=== PATIENT | male | born 1965 | race Caucasian/White ===

== ENCOUNTER 2023-04-11 01:17 | Observation (INO) | payer OTHER ==
[2023-04-11] MEDS: BUMETANIDE 1 MG/4 ML VIAL ONE (02:02)
[2023-04-11 02:16] LABS: Protime INR 2.24
[2023-04-11 02:18] LABS: Absolute Lymphocytes (CBC) 2.5 K/uL (0.7-4.9); Hematocrit 37.9 % (39.6-49.0); Lymphocytes % 28.9 % (15.3-44.8); MCV 93.4 fL (80-100); MPV 9.4 fL (7.6-11.3); Platelets 187 thou/uL (152-406); RBC Red Blood Cell Count 4.05 M/uL (4.33-5.43)
[2023-04-11 02:33] LABS: SARS-CoV-2 Antigen Rapid Res Negative (Negative)
[2023-04-11 02:38] LABS: Albumin 3.1 g/dL (3.4-5.0); Bilirubin Direct 0.2 mg/dL (0-0.2); Bilirubin Indirect, Calculated 0.4 mg/dL (0.2-0.8); Bilirubin Total 0.6 mg/dL (0.2-1.0); Magnesium 1.7 mg/dL (1.6-2.4); Potassium 3.8 mEq/L (3.5-5.1); Protein, Total 6.8 g/dL (6.4-8.2); Thyroid Stimulating Hormone 1.87 uIU/mL (0.358-3.740); Troponin High Sensitivity 43.8 pg/mL (<58.9)
[2023-04-11 03:28] LABS: Barbiturates NEGATIVE (NEGATIVE); Benzodiazepines NEGATIVE (NEGATIVE); Cocaine POSITIVE (NEGATIVE); METHAMPHETAM NEGATIVE (NEGATIVE); Methadone NEGATIVE (NEGATIVE); Opiates NEGATIVE (NEGATIVE); Phencyclidine NEGATIVE (NEGATIVE); THC Cannibis NEGATIVE (NEGATIVE)
[2023-04-11] MEDS ORDERED: ONDANSETRON 4 MG/2 ML VIAL IV PRN (04:33)
[2023-04-11] MEDS ORDERED: ACETAMINOPHEN 325 MG TABLET PO PRN (04:33)
--- NOTE | 2023-04-11 04:41 | ER ---
Nurse's Notes [facility] Name: Chun Cheema Age: 57 yrs Sex: Male : 1965 Arrival Date: 04/11/2023 Time: 01:17 Bed 16 Private MD: Diagnosis: Acute diastolic (congestive) heart failure;Cocaine abuse, history of COPD, diabetes mellitus type 2, history of right foot osteomyelitis, exertional dyspnea Presentation: 04/11 01:27 Chief complaint: Patient states: "I've been having SOB for the last 5 days and it got jw7 worse this morning. I've also been having some abdominal pain, especially when I'm talking or active". Coronavirus screen: At this time, the client does not indicate any symptoms associated with coronavirus-19. Ebola Screen: No symptoms or risks identified at this time. Initial Sepsis Screen: Does the patient meet any 2 criteria? No. Patient's initial sepsis screen is negative. Does the patient have a suspected source of infection? No. Patient's initial sepsis screen is negative. Risk Assessment: Do you want to hurt yourself or someone else? Patient reports no desire to harm self or others. Onset of symptoms was April 06, 2023. 01:27 Method Of Arrival: EMS: [facility] 7 01:27 Acuity: KEYON 3 jw7 Triage Assessment: 01:30 General: Appears distressed, uncomfortable, Behavior is calm, cooperative. Pain: jw7 Complains of pain in abdomen Pain does not radiate. Pain currently is 3 out of 10 on a pain scale. Quality of pain is described as throbbing, Pain began gradually, Is intermittent. EENT: No deficits noted. No signs and/or symptoms were reported regarding the EENT system. Neuro: Level of Consciousness is awake, alert, obeys commands, Oriented to person, place, time, situation. Cardiovascular: Heart tones S1 S2 present Capillary refill < 3 seconds Clubbing of nail beds is absent JVD is absent Patient's skin is warm and dry. Respiratory: Reports shortness of breath at rest on exertion Airway is patent Trachea midline Respiratory effort is even, unlabored, Respiratory pattern is regular, symmetrical, Onset: The symptoms/episode began/occurred today, the patient has severe shortness of breath. GI: Abdomen is round distended, Bowel sounds present X 4 quads. Abd is soft and non tender X 4 quads. : No deficits noted. No signs and/or symptoms were reported regarding the genitourinary system. Derm: Skin is intact, is healthy with good turgor, Skin is dry, Skin is normal, Skin temperature is warm. Musculoskeletal: Circulation, motion, and sensation intact. Range of motion: intact in all extremities. Historical: - Allergies: 01:30 No Known Allergies; jw7 - Home Meds: 01:30 Warfarin Oral [Active]; Lovenox Sub-Q [Active]; Famotidine Oral [Active]; Metformin jw7 Oral [Active]; Methocarbamol Oral [Active]; Metoprolol Tartrate Oral [Active]; gabapentin oral [Active]; Iron CR Oral [Active]; Super Calcium oral [Active]; vancomycin intravenous [Active]; - PMHx: 01:30 Congestive heart failure; COPD; Diabetes mellitus; GERD; Neuropathy; Irregular HR (Low jw7 Injection Fraction); - PSHx: :30 Aortic Valve Replacement; Toe Amputation (Right Foot); Foot (Bilateral); Thoracic jw7 Aneurysm Repair; - Immunization history:: Adult Immunizations up to date, Client reports receiving the 2nd dose of the Covid vaccine, Last tetanus immunization: < 10 years ago Pneumococcal vaccine is up to date, Flu vaccine is up to date. - Social history:: Smoking status: Patient reports the use of cigarette tobacco products, 1-2 cigarettes/day, Patient uses alcohol, but reports only rare drinking. Patient/guardian denies using street drugs, IV drugs. - Family history:: not pertinent. Screenin:[facility] ED Fall Risk Assessment (Adult) History of falling in the last 3 months, jw7 including since admission No falls in past 3 months (0 pts) Confusion or Disorientation No (0 pts) Intoxicated or Sedated No (0 pts) Impaired Gait Yes (1 pt) Mobility Assist Device Used No (0 pt) Altered Elimination No (0 pt) Score/Fall Risk Level 0 - 2 = Low Risk Oriented to surroundings, Maintained a safe environment, Educated pt \\T\\ family on fall prevention, incl call for assistance when getting out of bed. Abuse screen: Denies threats or abuse. Denies injuries from another. Nutritional screening: No deficits noted. Tuberculosis screening: No symptoms or risk factors identified. Assessment: 01:30 General: See Triage Assessment. jw7 02:00 Cardiovascular: Rhythm is sinus rhythm with 1st degree heart block. Respiratory: Airway jw7 is patent Trachea midline Respiratory effort is even, unlabored, Respiratory pattern is regular, symmetrical, Breath sounds with crackles bilaterally. 02:29 Reassessment: Patient appears in no apparent distress at this time. No changes from 7 previously documented assessment. Patient and/or family updated on plan of care and expected duration. Pain level reassessed. Patient is alert, oriented x 3, equal unlabored respirations, skin warm/dry/pink. 03:46 Reassessment: Patient appears in no apparent distress at this time. No changes from jw7 previously documented assessment. Patient and/or family updated on plan of care and expected duration. Pain level reassessed. Patient is alert, oriented x 3, equal unlabored respirations, skin warm/dry/pink. 04:50 Reassessment: Patient appears in no apparent distress at this time. No changes from [facility] previously documented assessment. Patient and/or family updated on plan of care and expected duration. Pain level reassessed. Patient is alert, oriented x 3, equal unlabored respirations, skin warm/dry/pink. 06:00 Reassessment: Patient appears in no apparent distress at this time. Patient and/or jw7 family updated on plan of care and expected duration. Pain level reassessed. Patient is alert, oriented x 3, equal unlabored respirations, skin warm/dry/pink. Patient states symptoms have improved. 06:22 General: Attempted to call report to main floor line and charge nurse phone, no answer. jw7 Vital Signs: 01:27 BP 135 / 103; Pulse 70; Resp 22 S; Temp 98(O); Pulse Ox 98% on 4 lpm NC; Weight 115.67 jw7 kg; Height 6 ft. 5 in. ; Pain 3/10; 01:30 BP 122 / 84; Pulse 65; Resp 23 S; Pulse Ox 99% on 4 lpm NC; jw7 02:30 BP 123 / 96; Pulse 65; Resp 26 S; Pulse Ox 98% on 4 lpm NC; jw7 03:30 BP 121 / 87; Pulse 61; Resp 24 S; Pulse Ox 97% on 2 lpm NC; jw7 04:30 BP 110 / 79; Pulse 65; Resp 20; Pulse Ox 99% on 4 lpm NC; jw7 05:30 BP 123 / 87; Pulse 58; Resp 20; Pulse Ox 99% on 4 lpm NC; jw7 06:00 BP 102 / 86; Pulse 63; Resp 21 S; Pulse Ox 99% on 4 lpm NC; jw7 01:27 Body Mass Index 30.24 (115.67 kg, 195.58 cm) jw7 01:27 Pain Scale: Adult [facility] ED Course: 01:26 Patient arrived in ED. 01:26 Ron Isbell MD is Attending Physician. sp4 01:26 Deneen Hernandez RN is Primary Nurse. jw7 01:30 Triage completed. jw7 01:30 Arm band placed on. jw7 01:40 Patient has correct armband on for positive identification. Bed in low position. Call [facility] light in reach. Side rails up X2. 02:02 Initial lab(s) drawn, by ED staff, sent to lab. Inserted saline lock: 20 gauge in right [facility] forearm, using aseptic technique. Blood collected. 02:06 XRAY Chest (1 view) In Process Unspecified. EDMS 02:06 Foot Right 3 View XRAY In Process Unspecified. EDMS 03:03 CT Chest, Abdomen, Pelvis - W/Contrast In Process Unspecified. EDMS 04:38 Trung Solis MD is Hospitalizing Provider. sp4 06:13 No provider procedures requiring assistance completed. Patient admitted, IV remains in [facility] place. 06:14 Provided Education on: need for admit. [facility] Administered Medications: 02:30 Drug: Bumetanide IVP 1 mg IVP once Route: IVP; Site: right forearm; [facility] 06:26 Follow up: Response: No adverse reaction [facility] Medication: 06:14 VIS not applicable for this client. [facility] Outcome: 04:40 Decision to Hospitalize by Provider. sp4 06:13 Admitted to Tele accompanied by tech, via wheelchair, room 410, [facility] 06:13 Condition: stable 06:13 Instructed on the need for admit, Demonstrated understanding of instructions, 06:26 Patient left the ED. [facility] Signatures: Dispatcher [employer] EDMS Jeremy Abebe Wendy Deneen Hernandez, [place] RN [facility] Ron Isbell MD MD sp4 Corrections: (The following items were deleted from the chart) 06:15 04:30 BP 110 / 79; Pulse 65bpm; Resp 20bpm; Pulse Ox 99% Nasal Cannula FiO2 4%; oe jw7 06:15 05:30 BP 123 / 87; Pulse 58bpm; Resp 20bpm; Pulse Ox 99% Nasal Cannula FiO2 4%; oe jw7
--- NOTE | 2023-04-11 04:41 | EDPHYS ---
Physician Documentation [facility] Name: Chun Cheema Age: 57 yrs Sex: Male : 1965 Arrival Date: 04/11/2023 Time: 01:17 Bed 16 Private MD: ED Physician Ron Isbell HPI: 04/11 01:26 This 57 yrs old Male presents to ER via Unassigned with complaints of sp4 Breathing Difficulty. 01:49 57-year-old male past medical history of CHF, COPD, diabetes mellitus type 2, GERD, sp4 neuropathy, irregular heart rate, presents with acute onset of dyspnea and abdominal distention starting 4 days ago.. Patient reports worsening orthopnea and dyspnea on exertion without any chest pain. Patient primarily goes to [facility] and went there for his medical care while he lived in [place].. Patient has history of aortic valve replacement and thoracic abdominal aortic aneurysm repair. Patient also has history of bilateral fourth toe amputation. Patient has left foot transmetatarsal amputation also right foot transmetatarsal amputation. Patient states he was taking vancomycin and cefazolin via PICC line until 4 days ago his PICC line came out of the left arm. Patient reports he was on antibiotics secondary to osteomyelitis of the right foot.. Historical: - Allergies: 01:30 No Known Allergies; jw7 - Home Meds: 01:30 Warfarin Oral [Active]; Lovenox Sub-Q [Active]; Famotidine Oral [Active]; Metformin jw7 Oral [Active]; Methocarbamol Oral [Active]; Metoprolol Tartrate Oral [Active]; gabapentin oral [Active]; Iron CR Oral [Active]; Super Calcium oral [Active]; vancomycin intravenous [Active]; - PMHx: 01:30 Congestive heart failure; COPD; Diabetes mellitus; GERD; Neuropathy; Irregular HR (Low jw7 Injection Fraction); - PSHx: 01:30 Aortic Valve Replacement; Toe Amputation (Right Foot); Foot (Bilateral); Thoracic jw7 Aneurysm Repair; - Immunization history:: Adult Immunizations up to date, Client reports receiving the 2nd dose of the Covid vaccine, Last tetanus immunization: < 10 years ago Pneumococcal vaccine is up to date, Flu vaccine is up to date. - Social history:: Smoking status: Patient reports the use of cigarette tobacco products, 1-2 cigarettes/day, Patient uses alcohol, but reports only rare drinking. Patient/guardian denies using street drugs, IV drugs. - Family history:: not pertinent. ROS: 04:40 Constitutional: Negative for fever, chills, and weight loss, Cardiovascular: Positive sp4 Dyspnea on exertion, orthopnea 04:40 All other systems are negative, Exam: 04:40 Constitutional: This is a well developed, well nourished patient who is awake, alert, sp4 and in no acute distress. Head/Face: Normocephalic, atraumatic. Eyes: Pupils equal round and reactive to light, extra-ocular motions intact. Lids and lashes normal. Conjunctiva and sclera are not injected. Cornea within normal limits. Periorbital areas with no swelling, redness, or edema. ENT: Nares patent. No nasal discharge, no septal abnormalities noted. Tympanic membranes are normal and external auditory canals are clear. Oropharynx with no redness, swelling, or masses, exudates, or evidence of obstruction, uvula midline. Mucous membranes moist. Neck: Trachea midline, no thyromegaly or masses palpated, and no cervical lymphadenopathy. Supple, full range of motion without nuchal rigidity, or vertebral point tenderness. Chest/axilla: Normal chest wall appearance and motion. Nontender with no deformity. No lesions are appreciated. Cardiovascular: Regular rate and rhythm with a normal S1 and S2. No gallops, murmurs, or rubs. Normal PMI, no JVD. No pulse deficits. Respiratory: Lungs have equal breath sounds bilaterally, clear to auscultation and percussion. No rales, rhonchi or wheezes noted. No increased work of breathing, no retractions or nasal flaring. Abdomen/GI: Soft, with normal bowel sounds. No distension or tympany. No guarding or rebound. No evidence of tenderness throughout. Back: No spinal tenderness. No costovertebral tenderness. Skin: Warm, dry with normal turgor. Normal color with no rashes, no lesions, and no evidence of cellulitis. MS/ Extremity: Pulses equal, no cyanosis. Neurovascular intact. Full, normal range of motion. Positive bilateral transmetatarsal toe amputations Neuro: Awake and alert, GCS 15, oriented to person, place, time, and situation. Cranial nerves II-XII grossly intact. Motor strength 5/5 in all extremities. Sensory grossly intact. Psych: Awake, alert, with orientation to person, place and time. Behavior, mood, and affect are within normal limits Vital Signs: 01:27 BP 135 / 103; Pulse 70; Resp 22 S; Temp 98(O); Pulse Ox 98% on 4 lpm NC; Weight 115.67 jw7 kg; Height 6 ft. 5 in. ; Pain 3/10; 01:30 BP 122 / 84; Pulse 65; Resp 23 S; Pulse Ox 99% on 4 lpm NC; jw7 02:30 BP 123 / 96; Pulse 65; Resp 26 S; Pulse Ox 98% on 4 lpm NC; jw7 03:30 BP 121 / 87; Pulse 61; Resp 24 S; Pulse Ox 97% on 2 lpm NC; jw7 04:30 BP 110 / 79; Pulse 65; Resp 20; Pulse Ox 99% on 4 lpm NC; jw7 05:30 BP 123 / 87; Pulse 58; Resp 20; Pulse Ox 99% on 4 lpm NC; jw7 06:00 BP 102 / 86; Pulse 63; Resp 21 S; Pulse Ox 99% on 4 lpm NC; jw7 01:27 Body Mass Index 30.24 (115.67 kg, 195.58 cm) [facility] 01:27 Pain Scale: Adult [facility] MDM: 01:52 Patient medically screened. sp4 04:26 ED course: EXAM DESCRIPTION: Chest Single View CLINICAL HISTORY:57 years Male, sp4 CONGESTION Comparison: Chest radiograph dated 01/18/2017 IMPRESSION: No focal consolidation. No pleural effusion. No pneumothorax. Prior median sternotomy with advanced cardiomegaly. Mild interstitial edema and vascular congestion. No acute osseous abnormality. . 04:28 Data reviewed: vital signs, nurses notes, EMS record, lab test result(s), cardiac sp4 enzymes, CBC, electrolytes, hepatic panel. 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 Bones: There is a status post amputation of the toes with second through fourth resection of the distal metatarsals. There is increase soft tissue thickening within the area of resection. There is increased sclerosis within the distal metatarsals second third perhaps corresponding to prior healing fracture and/or osteomyelitis are of consideration. No evidence for acute bony injuries. Soft tissues: No significant procedure swelling. Joints: No gross articular abnormality is identified. Others: There are no gross intraosseous lesions. No periosteal reaction were seen. IMPRESSION: Status post amputation of the toes with second through fourth resection of the distal metatarsals. Increased soft tissue thickening within the area of resection. . 04:28 ED course: IMPRESSION: CT CHEST: 1. Mild patchy hazy groundglass opacification sp4 throughout much of the right upper lobe and right lower lobe and to a lesser degree the right middle lobe. There are also a couple of very small patchy areas of groundglass opacification in the posterior lingula. Findings are nonspecific and may be due to an infectious or inflammatory process. A neoplastic process is considered less likely. 2. Small right pleural effusion. 3. Mild cardiomegaly with a prosthetic aortic valve. There is dilatation of the proximal aorta just beyond the prosthetic valve measuring approximately 4.6 cm in cross-sectional diameter. There is tapering of the ascending thoracic aorta. 4. Mildly prominent mediastinal and hilar lymph nodes which are likely reactive inflammatory in nature. CTABDOMEN AND PELVIS: 1. No evidence of acute intra-abdominal or intrapelvic pathology. There is no finding on this examination to explain the patient's reported complaint of abdominal distention. 2. Cholelithiasis. 3. Hepatosplenomegaly. 4. Occasional colonic diverticulosis. 5. Small fat-containing ventral umbilical hernia and small bilateral fat-containing inguinal hernias. Electronically signed by: Patty Stovall DO 04/11/2023 03:49 AM. 04:30 ED course: IMPRESSION: CT CHEST: 1. Mild patchy hazy groundglass opacification sp4 throughout much of the right upper lobe and right lower lobe and to a lesser degree the right middle lobe. There are also a couple of very small patchy areas of groundglass opacification in the posterior lingula. Findings are nonspecific and may be due to an infectious or inflammatory process. A neoplastic process is considered less likely. 2. Small right pleural effusion. 3. Mild cardiomegaly with a prosthetic aortic valve. There is dilatation of the proximal aorta just beyond the prosthetic valve measuring approximately 4.6 cm in cross-sectional diameter. There is tapering of the ascending thoracic aorta. 4. Mildly prominent mediastinal and hilar lymph nodes which are likely reactive inflammatory in nature. CTABDOMEN AND PELVIS: 1. No evidence of acute intra-abdominal or intrapelvic pathology. There is no finding on this examination to explain the patient's reported complaint of abdominal distention. 2. Cholelithiasis. 3. Hepatosplenomegaly. 4. Occasional colonic diverticulosis. 5. Small fat-containing ventral umbilical hernia and small bilateral fat-containing inguinal hernias. Electronically signed by: Patty Stovall DO 04/11/2023 03:49 AM. 04:40 Differential diagnosis: Anxiety Reaction asthma, Bronchitis CHF exacerbation, Chronic sp4 Obstructive Pulmonary Disease Myocardial Infarction pneumonia. 04/11 01:27 Order name: Basic Metabolic Panel; Complete Time: 04:04/11 01:27 Order name: CBC with Diff; Complete Time: 04:04/11 01:27 Order name: LFT's; Complete Time: 04:04/11 01:27 Order name: Magnesium; Complete Time: 04:04/11 01:27 Order name: NT PRO-BNP; Complete Time: 04:04/11 01:27 Order name: PT-INR; Complete Time: 04:25 04/11 01:27 Order name: Troponin HS; Complete Time: 04:04/11 01:27 Order name: TSH; Complete Time: 04:04/11 01:27 Order name: T4 Free; Complete Time: 04:04/11 01:28 Order name: Urine Drug Screen; Complete Time: 04:04/11 01:42 Order name: Influenza Screen (a \T\ B); Complete Time: 04:04/11 01:42 Order name: SARS RAPID; Complete Time: 04:25 04/11 01:42 Order name: Hemoglobin A1c 04/11 04:38 Order name: Lipid Profile [facility] 04/11 04:38 Order name: Lipid Profile [facility] 04/11 01:27 Order name: XRAY Chest (1 view) 04/11 01:42 Order name: CT Chest, Abdomen, Pelvis - W/Contrast 04/11 01:51 Order name: Foot Right 3 View XRAY 04/11 01:27 Order name: EKG; Complete Time: 01:28 sp4 04/11 01:27 Order name: Cardiac monitoring; Complete Time: 02:30 sp4 04/11 01:27 Order name: EKG - Nurse/Tech; Complete Time: 02:30 sp4 04/11 01:27 Order name: IV Saline Lock; Complete Time: 02:02 sp4 04/11 01:27 Order name: Labs collected and sent; Complete Time: 02:02 sp4 04/11 01:27 Order name: O2 Per Protocol; Complete Time: 01:43 sp4 04/11 01:27 Order name: O2 Sat Monitoring; Complete Time: 01:43 sp4 Administered Medications: 02:30 Drug: Bumetanide IVP 1 mg IVP once Route: IVP; Site: right forearm; jw7 06:26 Follow up: Response: No adverse reaction jw7 Disposition Summary: 04/11/23 04:40 Hospitalization Ordered Notes: Hospitalization Status: Inpatient Admission sp4 Provider: Trung Solis sp4 [facility] sp4 Condition: Stable sp4 Problem: new sp4 Symptoms: have improved sp4 Bed/Room Type: Standard sp4 Room Assignment: 410(04/11/23 06:03) jb4 Diagnosis - Acute diastolic (congestive) heart failure sp4 - Cocaine abuse, history of COPD, diabetes mellitus type 2, history of right foot sp4 osteomyelitis, exertional dyspnea Forms: - Medication Reconciliation Form sp4 - SBAR form sp4 - Leadership Thank You Letter sp4 Signatures: Dispatcher [employer] Lars Andres RN RN jb4 Deneen Hernandez RN RN jw7 Ron Isbell MD MD sp4 Corrections: (The following items were deleted from the chart) 06:03 04:40 sp4 jb4
--- NOTE | 2023-04-11 04:45 | P.HP ---
Certification for Inpatient Patient admitted to: Observation With expected LOS: <2 Midnights Practitioner: I am a practitioner with admitting privileges, knowledge of patient current condition, hospital course, and medical plan of care. Services: Services provided to patient in accordance with Admission requirements found in Title 42 Section 412.3 of the Code of Federal Regulations Patient History Date of Service: 04/11/23 Reason for admission: Chest pain, CHF exacerbation. History of Present Illness: 49-year-old male patient with medical history significant for hypertension, hyperlipidemia, cocaine abuse was evaluated for episode of shortness of breath and chest discomfort. He had been doing some cocaine and began to chest discomfort with shortness of breath. He denies episode of fever, chills, rigor, nausea, vomiting. Imaging study shows some congestion in the lung field and BNP was elevated. Creatinine was 1.65 and X-ray findings of suspicion for was some pulmonary vascular congestion. She was admitted for inpatient care and started on diuretic therapy. Review of Systems General: Malaise Eyes: Unremarkable ENT: Unremarkable Respiratory: Unremarkable Cardiovascular: Chest Pain, Orthopnea, Paroxysmal Noc. Dyspnea Gastrointestinal: Unremarkable Genitourinary: Unremarkable Musculoskeletal: Unremarkable Neurological: Unremarkable Lymphatics: Unremarkable Physical Examination - Physical Exam General: Alert, Oriented x3 HEENT: Atraumatic Neck: Supple Respiratory: Diminished Cardiovascular: Regular rate/rhythm, Normal S1 S2 Gastrointestinal: Soft and benign Neurological: Normal speech, Normal strength at 5/5 x4 extr - Studies Laboratory Data (last 24 hrs) 04/11/23 04/11/23 04/11/23 02:00 02:00 02:00 WBC 8.80 Hgb 13.2 L Hct 37.9 L Plt Count 187 PT 24.1 H INR 2.24 Sodium 136 Potassium 3.8 BUN 24 H Creatinine 1.46 H Glucose 161 H Magnesium 1.7 Total Bilirubin 0.6 AST 18 ALT 27 Alkaline Phosphatase 45 Microbiology Data (last 24 hrs): 04/11/23 02:00 Nasopharnyx Influenza Type A Antigen Screen - Final 04/11/23 02:00 Nasopharnyx Influenza Type B Antigen Screen - Final Assessment and Plan - Plan CHF exacerbation: Deemed to cocaine abuse among other possibilities. Patient will be started on IV diuretic therapy with Lasix, strict input and output monitoring 1.2 L fluid restriction and continue on low-salt diet. Will continue telemetry monitoring. Will obtain echocardiogram to assess cardiac function History of cocaine abuse: UDS is positive for cocaine. Will continue to discourage use of cocaine. MATTEO: Creatinine is elevated at 1.46. Will continue routine care with thyroid and nephrotoxins and dose meds for estimated glomerular filtration. Hyperlipidemia: Continue statin therapy. Hypertension: We will monitor vital signs per unit protocol and continue outpatient antihypertensive medications Prophylaxis: Lovenox for DVT prophylaxis. CODE STATUS: Full code. Disposition: We will treat his CHF, monitor clinical symptomatology for creatinine abuse and discharge him when he is deemed clinically stable. - Advance Directives Does patient have a Living Will: No Does patient have a Durable POA for Healthcare: No
[2023-04-11 08:21] VITALS: BMI 30.2
[2023-04-11] MEDS: MAGNESIUM SULFATE 1 gm IVPB 1 GM/100 ML BAG IV ONE (09:19)
[2023-04-11] MEDS: ENOXAPARIN 40 MG/0.4 ML SQ SCH (09:19)
[2023-04-11] MEDS: POTASSIUM CL SA 10 MEQ TAB PO ONE ×3 (09:20→17:49)
[2023-04-11] MEDS: FUROSEMIDE 20 MG/ 2ML VIAL IV SCH (09:20)
--- NOTE | 2023-04-11 11:43 | P.PN ---
Subjective Date of Service: 04/11/23 Chief Complaint: Chest pain, CHF exacerbation. Pt is resting comfortably in bed. Pt is requesting for placement of a PICC line in order to complete outpt iv abx therapy for osteomyelitis. BNP is 14,142. Will follow up Echo. No other complaints. Review of Systems Unremarkable General: Unremarkable Eyes: Unremarkable ENT: Unremarkable Respiratory: Unremarkable Cardiovascular: Unremarkable Gastrointestinal: Unremarkable Genitourinary: Unremarkable Musculoskeletal: Unremarkable Integumentary: Unremarkable Neurological: Unremarkable Lymphatics: Unremarkable Physical Examination - Vital Signs Temperature: 97.6 F Blood Pressure: 134/86 Pulse: 65 Respirations: 16 Pulse Ox (%): 97 - Physical Exam General: Alert, In no apparent distress, Oriented x3 HEENT: Atraumatic, Normocephalic, PERRLA Neck: Supple, 2+ carotid pulse no bruit Respiratory: Clear to auscultation bilaterally, Normal air movement Cardiovascular: No edema, Normal pulses, Regular rate/rhythm, Normal S1 S2 Capillary refill: <2 Seconds Gastrointestinal: Normal bowel sounds, Soft and benign, Non-distended Musculoskeletal: No clubbing, No swelling, Other (amputation of bilateral toes) Integumentary: No rashes, No breakdown Neurological: Normal speech, Normal strength at 5/5 x4 extr, Normal tone, Sensation intact, Cranial nerves 3-12 intact - Studies Laboratory Data (last 24 hrs) 04/11/23 04/11/23 04/11/23 02:00 02:00 02:00 WBC 8.80 Hgb 13.2 L Hct 37.9 L Plt Count 187 PT 24.1 H INR 2.24 Sodium 136 Potassium 3.8 BUN 24 H Creatinine 1.46 H Glucose 161 H Magnesium 1.7 Total Bilirubin 0.6 AST 18 ALT 27 Alkaline Phosphatase 45 Microbiology Data (last 24 hrs): 04/11/23 02:00 Nasopharnyx Influenza Type A Antigen Screen - Final 04/11/23 02:00 Nasopharnyx Influenza Type B Antigen Screen - Final Assessment And Plan - Plan CHF exacerbation: BNP is 14,142. Will continue lasix, Strict I/O, daily weight and low salt diet. Pt used cocaine recently. Will follow up Echo. History of cocaine abuse: UDS is positive for cocaine. Will continue to discourage use of cocaine. MATTEO: Creatinine is elevated at 1.46. Will avoid nephrotoxins and monitor renal function. Hypomagnesemia: Mag is 1.7. Will replete and monitor. Hyperlipidemia: Statin. Hypertension: Continue outpatient antihypertensive medications DVT Prophylaxis: Lovenox. Code: Full code. Disposition: Pending hospital course.
--- NOTE | 2023-04-11 13:18 | RAD REPORT ---
EXAM DESCRIPTION: CT - Chest Abdomen Pelvis W Cont - 04/11/2023 6:42 am CLINICAL HISTORY: 57 years Male ABDOMINAL DISTENTION. TECHNIQUE: CT imaging of the chest, abdomen and pelvis with intravenous contrast administration. Sag ittal and coronal reconstructed images were performed. The CT study is performed according to ALARA ( as low as reasonably achievable) or ALARA/IMAGE GENTLY, with automatic adjustment of mA and/or kV acc ording to patient size. Performed on: 04/11/2023 at 3:02 AM COMPARISON: CT chest angiography report from 01/18/2017. The images were not available for review FINDINGS: CHEST: Lungs: The lungs are well expanded. There is mild patchy hazy groundglass opacification throughout mu ch of the right upper lobe and right lower lobe and to a lesser degree the right middle lobe. There a re also a couple of very small patchy areas of groundglass opacification in the posterior lingula. Th ere is mild scattered interlobular septal thickening. There is a small right pleural effusion. The ce ntral airways are patent. There is no pneumothorax. Heart: The heart is mildly enlarged. There are postsurgical changes of the mediastinum. There appea rs to be a prosthetic aortic valve and there is dilatation of the proximal aorta just beyond the pros thetic valve. The proximal aorta measures approximately 4.6 cm transversely. There is tapering of the ascending thoracic aorta. Proximal to the aortic arch the ascending thoracic aorta measures approxim ately 3.3 x 2.8 in cross-sectional diameter. There is mild dilatation of the left ventricle. There is no pericardial effusion. Mediastinum: There are a few mildly prominent mediastinal and hilar lymph nodes which are likely reac tive inflammatory in nature. Please see above regarding the measurement of the ascending thoracic a lincoln. The main pulmonary artery trunk measures approximately 3.7 cm in diameter. Bones: No acute osseous abnormalities are identified. Soft tissues: No focal soft tissue abnormalities are identified. There is no evidence of axillary lym phadenopathy. The thyroid gland is normal in size and configuration. ABDOMEN/PELVIS: Liver: The liver measures approximately 20 cm in craniocaudal dimension. No focal hepatic abnormaliti es are identified. Liver attenuation is within normal limits. Spleen: The spleen measures approximately 13 cm in craniocaudal dimension. No focal splenic abnormali ties are identified. Gallbladder and bile duct: The gallbladder is well distended. There is an approximately 2.5 x 2.1 c m gallstone in the neck of the gallbladder. There is no biliary ductal dilatation. Pancreas: The pancreas is grossly normal in size and configuration. Adrenal Glands: The adrenal glands are normal in size and configuration. Kidneys: The kidneys are normal in size and configuration. There is no evidence of hydronephrosis. Th ere is no evidence of nephrolithiasis. No definite solid or cystic renal mass lesions are identified. There is stranding of the perinephric fat bilaterally which is nonspecific and can be seen with associate pathologist [facility] renal disease. Stomach: The stomach is grossly normal. There is no definite hiatal hernia. Bowel: The bowel gas pattern is non specific and non obstructive. There is occasional colonic diverti culosis. Appendix: The appendix is normal. Free air: There is no evidence of free air. Free fluid: There is no evidence of free fluid. Vasculature: The aorta is normal in caliber and contour. The inferior vena cava is grossly unremarkab le. Lymphadenopathy: No pathologic lymphadenopathy is identified. Bladder: The bladder is well distended and smooth in contour. Reproductive: The prostate gland is grossly within normal limits. Bones: No acute osseous abnormalities are identified. There are mild degenerative changes of the lumb ar spine. Soft tissues: No focal soft tissue abnormalities are identified. There is a small fat-containing vent ral umbilical hernia. There are small bilateral fat-containing inguinal hernias. IMPRESSION: CT CHEST: 1. Mild patchy hazy groundglass opacification throughout much of the right upper lobe and right low er lobe and to a lesser degree the right middle lobe. There are also a couple of very small patchy ar eas of groundglass opacification in the posterior lingula. Findings are nonspecific and may be due to an infectious or inflammatory process. A neoplastic process is considered less likely. 2. Small right pleural effusion. 3. Mild cardiomegaly with a prosthetic aortic valve. There is dilatation of the proximal aorta just beyond the prosthetic valve measuring approximately 4.6 cm in cross-sectional diameter. There is tap ering of the ascending thoracic aorta. 4. Mildly prominent mediastinal and hilar lymph nodes which are likely reactive inflammatory in jaylin ure. CT ABDOMEN AND PELVIS: 1. No evidence of acute intra-abdominal or intrapelvic pathology. There is no finding on this exami nation to explain the patient's reported complaint of abdominal distention. 2. Cholelithiasis. 3. Hepatosplenomegaly. 4. Occasional colonic diverticulosis. 5. Small fat-containing ventral umbilical hernia and small bilateral fat-containing inguinal hernia s. Electronically signed by: Patty Stovall DO 04/11/2023 03:49 AM BIRDCAGE ASSEMBLER Due to temporary technical issues with the PACS/Fluency reporting system, reports are being signed by the in house radiologists without review as a courtesy to insure prompt reporting. The interpreting radiologist is fully responsible for the content of the report.
--- NOTE | 2023-04-11 13:28 | RAD REPORT ---
EXAM DESCRIPTION: RAD - Foot Right 3 View - 04/11/2023 2:05 am CLINICAL HISTORY: 57 years, Male, history of osteomyelitis COMPARISON: None FINDINGS: 3 X-ray views of the right foot (frontal lateral and oblique views) were performed. Bones: There is a status post amputation of the toes with second through fourth resection of the dist al metatarsals. There is increase soft tissue thickening within the area of resection. There is incre ased sclerosis within the distal metatarsals second third perhaps corresponding to prior healing frac ture and/or osteomyelitis are of consideration. No evidence for acute bony injuries. Soft tissues: No significant procedure swelling. Joints: No gross articular abnormality is identified. Others: There are no gross intraosseous lesions. No periosteal reaction were seen. IMPRESSION: Status post amputation of the toes with second through fourth resection of the distal me tatarsals. Increased soft tissue thickening within the area of resection. Electronically signed by: Alex Gilmore MD 04/11/2023 02:23 AM HOUSING MANAGER Due to temporary technical issues with the PACS/Fluency reporting system, reports are being signed by the in house radiologists without review as a courtesy to insure prompt reporting. The interpreting radiologist is fully responsible for the content of the report.
--- NOTE | 2023-04-11 13:29 | RAD REPORT ---
EXAM DESCRIPTION: RAD - Chest Single View - 04/11/2023 2:05 am CLINICAL HISTORY: 7 years Male, CONGESTION COMPARISON: Chest radiograph dated 01/18/2017 IMPRESSION: No focal consolidation. No pleural effusion. No pneumothorax. Prior median sternotomy with advanced cardiomegaly. Mild interstitial edema and vascular congestion. No acute osseous abnormality. Electronically signed by: Juanito Palma DO 04/11/2023 02:12 AM WHEEL TRUING MACHINE TENDER Due to temporary technical issues with the PACS/Fluency reporting system, reports are being signed by the in house radiologists without review as a courtesy to insure prompt reporting. The interpreting radiologist is fully responsible for the content of the report.
[2023-04-11] MEDS: WARFARIN SODIUM 5 MG TAB PO SCH (16:21)
--- NOTE | 2023-04-11 17:18 | P.CNS ---
Date of Consult: 04/11/23 Chief Complaint: Chest pain, CHF exacerbation. History of Present Illness: Patient with PMH of congestive heart failure, aortic valve replacement, AA repair, presented with worsening SOB and congestion, no chest pain, no syncope, no palpitations. Allergies No Known Allergies Allergy (Verified 04/11/23 06:54) Home Medications: Enoxaparin Sodium [Lovenox 120 MG Syr*] 120 mg SQ BID 04/11/23 Famotidine [Pepcid] 20 mg PO DAILY PRN 04/11/23 Metformin ER [Glucophage ER] 500 mg PO BID 04/11/23 Metoprolol Tartrate 25 mg PO DAILY 04/11/23 Sacubitril/Valsartan [Entresto 24 mg-26 mg Tablet] 24 - 26 mg PO DAILY 04/11/23 Warfarin Sodium 10 mg PO DAILY 04/11/23 methocarbamoL [Methocarbamol] 250 mg PO BEDTIME 04/11/23 - Past Medical/Surgical History -: diabetes -: chf -: copd -: gerd -: neuropathy -: amputations to feet -: heart valve aortic replaced 2019 -: aneurysm on aorta - Social History Alcohol use: Yes CD- Drugs: Yes Place of Residence: Home Review of Systems 10-point ROS is otherwise unremarkable Physical Examination Temp Pulse Resp BP Pulse Ox 97.2 F 73 18 131/94 H 97 04/11/23 16:00 04/11/23 16:00 04/11/23 16:00 04/11/23 16:00 04/11/23 16:00 General: Alert HEENT: Atraumatic Neck: Supple, 2+ carotid pulse no bruit Respiratory: Clear to auscultation bilaterally Cardiovascular: Normal S1 S2, Edema (+1 BLE) Gastrointestinal: Normal bowel sounds Laboratory Data (last 24 hrs) 04/11/23 04/11/23 04/11/23 02:00 02:00 02:00 WBC 8.80 Hgb 13.2 L Hct 37.9 L Plt Count 187 PT 24.1 H INR 2.24 Sodium 136 Potassium 3.8 BUN 24 H Creatinine 1.46 H Glucose 161 H Magnesium 1.7 Total Bilirubin 0.6 AST 18 ALT 27 Alkaline Phosphatase 45 - Problems (1) Acute on chronic combined systolic and diastolic heart failure Current Visit: Yes Status: Acute Plan: agree with IV lasix 20 mg IV BID Start Coreg 3.125 mg po BID Start lisinopril 5 mg daily Echo shows severe reduced EF monitor input and out and electrolytes. (2) H/O mechanical aortic valve replacement Current Visit: Yes Status: Acute Plan: INR is 2.2, please resume patient Coumadin for INR goal of 2-3 patient echo shows normal functioning valve.
[2023-04-11] MEDS: carvediloL 3.125 MG TAB PO SCH (17:37)
[2023-04-12 06:14] LABS: Absolute Lymphocytes (CBC) 1.8 K/uL (0.7-4.9); Hematocrit 41.9 % (39.6-49.0); Lymphocytes % 33.6 % (15.3-44.8); MCV 95.2 fL (80-100); MPV 9.5 fL (7.6-11.3); Platelets 191 thou/uL (152-406)
[2023-04-12 06:36] LABS: Potassium 4.9 mEq/L (3.5-5.1)
[2023-04-12] MEDS: lisinopriL 5 MG TAB PO SCH (08:44)
[2023-04-12 09:10] VITALS: O2SAT 95
--- NOTE | 2023-04-12 10:50 | P.PN ---
Subjective Date of Service: 04/12/23 Chief Complaint: Chest pain, CHF exacerbation. Subjective: Improving <Nikki Glover - Last Filed: 04/12/23 10:54> Date of Service: 04/12/23 <Naima Madden - Last Filed: 04/12/23 12:31> Review of Systems 10-point ROS is otherwise unremarkable Respiratory: Other ("Weepin" asked pt to describe and he describes LOPEZ) Gastrointestinal: No Distention Musculoskeletal: As per HPI Integumentary: As per HPI <Nikki Glover - Last Filed: 04/12/23 10:54> Physical Examination - Vital Signs Temperature: 96.9 F Blood Pressure: 126/83 Pulse: 81 Respirations: 18 Pulse Ox (%): 98 - Physical Exam General: Alert, In no apparent distress, Oriented x3 HEENT: Atraumatic, Normocephalic Neck: Supple, 2+ carotid pulse no bruit Respiratory: Clear to auscultation bilaterally Cardiovascular: No edema, Normal pulses, Regular rate/rhythm Capillary refill: <2 Seconds Gastrointestinal: Normal bowel sounds, Soft and benign Musculoskeletal: Other (all toes amputated) Integumentary: Diabetic ulcer Neurological: Normal speech, Normal strength at 5/5 x4 extr Lymphatics: No axilla or inguinal lymphadenopathy External genitalia: Deferred Rectal: Deferred <Nikki Glover - Last Filed: 04/12/23 10:54> Assessment And Plan - Plan Problems (1) Acute on chronic combined systolic and diastolic heart failure Current Visit: Yes Status: Acute Plan: agree with IV lasix 20 mg IV BID (pt refused and we dicussed health implications of refusal, voiced understanding. Took this am dose) Start Coreg 3.125 mg po BID Start lisinopril 5 mg daily Echo shows severe reduced EF monitor input and out and electrolytes. (2) H/O mechanical aortic valve replacement Current Visit: Yes Status: Acute Plan: INR is 2.2, please resume patient Coumadin for INR goal of 2-3 patient echo shows normal functioning valve. History of cocaine abuse: UDS is positive for cocaine. Will continue to discourage use of cocaine. MATTEO: Creatinine is elevated at 1.46. Will avoid nephrotoxins and monitor renal function. Hypomagnesemia: Mag is 1.7. Will replete and monitor. Hyperlipidemia: Statin. Hypertension: Continue antihypertensive medications DVT Prophylaxis: Lovenox. Code: Full code. Disposition: Pending hospital course. <Nikki Glover - Last Filed: 04/12/23 10:54> - Plan Pt seen and examined. I agree with the note by the SENIOR ELECTRONICS TECHNICIAN. Continue lasix, strict I/O and daily weight. Continue warfarin. INR is 2.2. Goal is 2 - 3. Pt was advised to quit using cocaine. Pt will need to follow up with ID in clinic for placement of PICC line. Will start fish oil for elevated triglyceride. <Naima Madden - Last Filed: 04/12/23 12:31>
--- NOTE | 2023-04-12 12:45 | ECHO ---
HEIGHT: 6 ft 5 in WEIGHT: 255 lb 0 oz DATE OF STUDY: 04/11/[address]: Nikki Garcia SENIOR PORTFOLIO MANAGER-BC 2-DIMENSIONAL: YES M.MODE: YES DOPPLER: YES COLOR FLOW: YES TDS: NO PORTABLE: YES DEFINITY: NO BUBBLE STUDY: NO DIAGNOSIS: CONGESTIVE HEART FAILURE CARDIAC HISTORY: CATHERIZATION: YES SURGERY: YES PROSTHETIC VALVE: NO PACEMAKER: NO MEASUREMENTS (cm) DIASTOLIC (NORMALS) SYSTOLIC (NORMALS) IVSd 1.2 (0.6-1.2) LA Diam 4.7 (1.9-4.0) LVEF 10-15% LVIDd 8.2 (3.5-5.7) LVIDs 6.8 (2.0-3.5) %FS 17% LVPWd 1.2 (0.6-1.2) Ao Diam 4.7 (2.0-3.7) 2 DIMENSIONAL ASSESSMENT: RIGHT ATRIUM: NORMAL LEFT ATRIUM: NORMAL RIGHT VENTRICLE: NORMAL LEFT VENTRICLE: SEVERE DILATATION TRICUSPID VALVE: TRACE OF TRICUSPID REGURGITATION MITRAL VALVE: MILD MITRAL REGURGITATION PULMONIC VALVE: NORMAL AORTIC VALVE: MECHANICAL AORTIC VALVE, DOPPLER VELOCITYY INDEX 0.75 PERICARDIAL EFFUSION: TRACE AORTIC ROOT: MODERATE DILATATION (4.7CM) LEFT VENTRICULAR WALL MOTION: SEVERE GLOBAL HYPOKINESIS. DOPPLER/COLOR FLOW: GRADE II DIASTOLIC DYSFUNCTION. COMMENTS: 1. SEVERE GLOBA HYPOKINESIS, SEVERLY REDUCED LEFT VENTRICULAR FUNCTION, EJECTION FRACTION 10-15%, SEVERELY DILATED LEFT VENTRICULAR CAVITY. 2. GRADE II DIASTOLIC DYSFUNCTION. 3. NORMAL FUNCTIONING MECHANICAL AORTIC VALVE (DOPPLER VELOCITY INDEX 0.75) 4. RIGHT ATRIAL PRESSURE 0-5mmHg. TECHNOLOGIST: FELECIA LOJA
[2023-04-12 12:56] VITALS: BP 120/80; TEMP 97.3
[2023-04-12] MEDS: DOCOSAHEXANOIC AC/EPA 1000 MG PO SCH (13:28)
--- NOTE | 2023-04-12 14:43 | EKG ---
Test Date: 2023-04-11 Test Time: 02:17:35 Certified Medical Coder: ONEL MEASUREMENT RESULTS: Intervals: Rate: 62 PA: 240 QRSD: 140 QT: 448 QTc: 454 [place]: P: -14 PA: 240 QRS: -12 T: 144 INTERPRETIVE STATEMENTS: Sinus rhythm with 1st degree AV block Nonspecific intraventricular block T wave abnormality, consider lateral ischemia Abnormal ECG No previous ECG available for comparison Electronically Signed On 04-12-23 14:41:11 DEMO SPECIALIST by Erick Carpenter
--- NOTE | 2023-04-12 17:40 | P.PN ---
Subjective Date of Service: 04/12/23 Chief Complaint: Chest pain, CHF exacerbation. Subjective: No new changes Review of Systems 10-point ROS is otherwise unremarkable Physical Examination - Vital Signs Temperature: 97.3 F Blood Pressure: 120/80 Pulse: 66 Respirations: 16 Pulse Ox (%): 96 - Physical Exam General: Alert HEENT: Atraumatic Respiratory: Clear to auscultation bilaterally Cardiovascular: No edema, Normal S1 S2 Gastrointestinal: Normal bowel sounds Assessment And Plan - Current Problems (Diagnosis) (1) Acute on chronic combined systolic and diastolic heart failure Current Visit: Yes Status: Acute Plan: Coreg 3.125 mg po BID lisinopril 5 mg daily lasix 20 mg daily Echo shows severe reduced EF monitor input and out and electrolytes. (2) H/O mechanical aortic valve replacement Current Visit: Yes Status: Acute Plan: INR is 2.2, continue Coumadin for INR goal of 2-3 patient echo shows normal functioning valve.
--- NOTE | 2023-04-13 08:13 | P.DS ---
Admission Date: 04/11/23 Discharge Date: 04/13/23 Reason for Admission: Chest pain, CHF exacerbation. Consultations: Cardiology Brief History of Present Illness: 49-year-old male patient with medical history significant for hypertension, hyperlipidemia, cocaine abuse was evaluated for episode of shortness of breath and chest discomfort. He had been doing some cocaine and began to chest discomfort with shortness of breath. He denies episode of fever, chills, rigor, nausea, vomiting. Imaging study shows some congestion in the lung field and BNP was elevated. Creatinine was 1.65 and X-ray findings of suspicion for was some pulmonary vascular congestion. She was admitted for inpatient care and started on diuretic therapy. Hospital Course: Mr. Win initially diuresed well. The morning after admission he was no longer short of breath. He states his abdomen is less distended, soft, and nontender. He states he would really like a PICC line at this time so that he can get outpatient antibiotics ordered by his Jean doctor. Mr. Win was informed that that must be an outpatient procedure since his UDS was positive for cocaine and the orders for IV therapy were from another provider. Patient had an echo that showed severely reduced EF however patient continued to refuse diuretics. The patient was counseled to continue treatment as ordered, states he would take his IV Lasix. He is doing well on a medical standpoint as far as this admission however he continues to be noncompliant. He is back to baseline and will be discharged from the hospital to follow-up with his Ted Dr. <Nikki Glover - Last Filed: 04/13/23 15:27> Admission Date: 04/11/23 Discharge Date: 04/13/23 Hospital Course: Pt seen and examined. I agree with the note by the SENIOR CONSTRUCTION PROJECT MANAGER. Ok to discharge pt <Naima Madden - Last Filed: 04/13/23 15:36> Disposition: ROUTINE DISCHARGE Discharge Condition: FAIR Vital Signs/Physical Exam: Temp Pulse Resp BP Pulse Ox 97.3 F 66 16 120/80 96 04/12/23 17:40 04/12/23 17:40 04/12/23 17:40 04/12/23 17:40 04/12/23 17:40 General: Alert, Oriented x3 HEENT: Atraumatic, Normocephalic Neck: Supple, 2+ carotid pulse no bruit Respiratory: Clear to auscultation bilaterally, Normal air movement Cardiovascular: No edema, Regular rate/rhythm Capillary refill: <2 Seconds Gastrointestinal: Soft and benign Musculoskeletal: No clubbing Integumentary: No rashes Neurological: Normal gait, Normal speech Lymphatics: No axilla or inguinal lymphadenopathy External genitalia: Deferred Rectal: Deferred Laboratory Data at Discharge: WBC 5.50 thou/uL (4.3-10.9) 04/12/23 05:05 Hgb 14.3 g/dL (13.6-17.9) D 04/12/23 05:05 Hct 41.9 % (39.6-49.0) 04/12/23 05:05 Plt Count 191 thou/uL (152-406) 04/12/23 05:05 PT 24.1 SECONDS (9.5-12.5) H 04/11/23 02:00 INR 2.24 04/11/23 02:00 Sodium 137 mEq/L (136-145) 04/12/23 05:05 Potassium 4.9 mEq/L (3.5-5.1) D 04/12/23 05:05 BUN 24 mg/dL (7-18) H 04/12/23 05:05 Creatinine 1.40 mg/dL (0.70-1.30) H 04/12/23 05:05 Glucose 176 mg/dL (74-106) H 04/12/23 05:05 Magnesium 1.7 mg/dL (1.6-2.4) 04/11/23 02:00 Total Bilirubin 0.6 mg/dL (0.2-1.0) 04/11/23 02:00 AST 18 U/L (15-37) 04/11/23 02:00 ALT 27 U/L (16-61) 04/11/23 02:00 Alkaline Phosphatase 45 U/L (45-117) 04/11/23 02:00 Triglycerides 245 mg/dL (<150) H 04/12/23 05:05 Cholesterol 123 mg/dL (<200) 04/12/23 05:05 HDL Cholesterol 32 mg/dL (40-60) L 04/12/23 05:05 Cholesterol/HDL Ratio 3.84 04/12/23 05:05 <Glover,Nikki - Last Filed: 04/13/23 15:27> Vital Signs/Physical Exam: Temp Pulse Resp BP Pulse Ox 97.3 F 66 16 120/80 96 04/12/23 17:40 04/12/23 17:40 04/12/23 17:40 04/12/23 17:40 04/12/23 17:40 Laboratory Data at Discharge: WBC 5.50 thou/uL (4.3-10.9) 04/12/23 05:05 Hgb 14.3 g/dL (13.6-17.9) D 04/12/23 05:05 Hct 41.9 % (39.6-49.0) 04/12/23 05:05 Plt Count 191 thou/uL (152-406) 04/12/23 05:05 PT 24.1 SECONDS (9.5-12.5) H 04/11/23 02:00 INR 2.24 04/11/23 02:00 Sodium 137 mEq/L (136-145) 04/12/23 05:05 Potassium 4.9 mEq/L (3.5-5.1) D 04/12/23 05:05 BUN 24 mg/dL (7-18) H 04/12/23 05:05 Creatinine 1.40 mg/dL (0.70-1.30) H 04/12/23 05:05 Glucose 176 mg/dL (74-106) H 04/12/23 05:05 Magnesium 1.7 mg/dL (1.6-2.4) 04/11/23 02:00 Total Bilirubin 0.6 mg/dL (0.2-1.0) 04/11/23 02:00 AST 18 U/L (15-37) 04/11/23 02:00 ALT 27 U/L (16-61) 04/11/23 02:00 Alkaline Phosphatase 45 U/L (45-117) 04/11/23 02:00 Triglycerides 245 mg/dL (<150) H 04/12/23 05:05 Cholesterol 123 mg/dL (<200) 04/12/23 05:05 HDL Cholesterol 32 mg/dL (40-60) L 04/12/23 05:05 Cholesterol/HDL Ratio 3.84 04/12/23 05:05 <Naima Madden - Last Filed: 04/13/23 15:36> Diet: AHA Activity: Ad selwyn <Nikki Glover - Last Filed: 04/13/23 15:27> <Naima Madden - Last Filed: 04/13/23 15:36> Home Medications: Enoxaparin Sodium [Lovenox 120 MG Syr*] 120 mg SQ BID 04/11/23 Famotidine [Pepcid] 20 mg PO DAILY PRN 04/11/23 Metformin ER [Glucophage ER*] 500 mg PO BID 04/11/23 Sacubitril/Valsartan [Entresto 24 mg-26 mg Tablet] 24 - 26 mg PO DAILY 04/11/23 Warfarin Sodium 10 mg PO DAILY 04/11/23 methocarbamoL [Methocarbamol] 250 mg PO BEDTIME 04/11/23 Furosemide [Lasix] 40 mg PO DAILY 30 Days #30 tab 04/12/23 carvediloL [Coreg*] 3.125 mg PO BID 6AM 6PM 30 Days #60 tab 04/12/23 lisinopriL [Prinivil*] 5 mg PO DAILY 30 Days #30 tab 04/12/23 New Medications: carvediloL [Coreg*] 3.125 mg PO BID 6AM 6PM 30 Days #60 tab Furosemide [Lasix] 40 mg PO DAILY 30 Days #30 tab lisinopriL [Prinivil*] 5 mg PO DAILY 30 Days #30 tab Physician Discharge Instructions: Continue ad selwyn activity. Take lasix 40mg po daily, coreg 3.125mg po BID, lisinopril and other home meds. Stop taking metoprolol. Follow up with infectious disease specialist within a few days for placement of PICC line and iv infusion. Follow up with PCP within 1 week Followup: NONE,NONE [Primary Care Provider] - 1 Week (follow up)
== END 2023-04-12 17:57 | disposition home or self-care (01) ==
LOC: ER 01:17 → ERHOLD 04:33 → 4TH 06:06
PROVIDERS: ADMIT Internal Medicine Nephrology; ATTEND Hospitalist
DX: I50.43 Acute on chronic combined systolic (congestive) and diastolic (congestive) heart failure (principal); I10 Essential (primary) hypertension; E78.5 Hyperlipidemia, unspecified; F14.10 Cocaine abuse, uncomplicated; R06.02 Shortness of breath; N17.9 Acute kidney failure, unspecified; E83.42 Hypomagnesemia; E11.9 Type 2 diabetes mellitus without complications; Z95.5 Presence of coronary angioplasty implant and graft; Z11.52 Encounter for screening for COVID-19; Z71.51 Drug abuse counseling and surveillance of drug abuser
CPT/HCPCS: 36415; 71045; 71260; 74177; 80048; 80061; 80076; 80307; 82947; 83735; 83880; 84132; 84439; 84443; 84484; 85025; 85610; 87804; 87811; 93005; 93306; G0378; J1650; J1940; J3475; Q9967